=== PATIENT | female | born 1995 | race Caucasian/White ===

== ENCOUNTER 2017-02-07 16:18 | Inpatient (IN) ==
[2017-02-08] MEDS ORDERED: STADOL IV PRN ×3 (23:48)
[2017-02-08] MEDS ORDERED: BRETHINE SUBQ PRN (23:48)
[2017-02-08] MEDS ORDERED: PEPCID IV PRN (23:48)
[2017-02-08] MEDS ORDERED: TYLENOL PO PRN (23:48)
[2017-02-08] MEDS ORDERED: PEPCID PO ONE (23:48)
[2017-02-08] MEDS ORDERED: REGLAN PO ONE (23:48)
[2017-02-08] MEDS ORDERED: KEFZOL 1 GM/D5W 1 GM/50 ML IVPB IV PRN (23:48)
[2017-02-08] MEDS ORDERED: ZOFRAN IV PRN (23:48)
[2017-02-08] MEDS ORDERED: PEPCID PO PRN (23:48)
[2017-02-08] MEDS ORDERED: AMBIEN PO PRN (23:48)
[2017-02-09] MEDS: LR 1,000 ML IV ONE ×2 (00:30→07:52)
[2017-02-09] MEDS ORDERED: AMPICILLIN 2 GM/NS 2 GM/100 ML IVPB IV ONE (00:30)
[2017-02-09 01:18] LABS: MANUAL DIFF NEEDED? NO
[2017-02-09 01:18] LABS: URINE SOURCE VOIDED
[2017-02-09 01:26] LABS: BILIRUBIN URINE NEGATIVE (NEGATIVE); BLOOD URINE 1+ (NEGATIVE); CLARITY SL. CLOUDY (CLEAR); COLOR YELLOW; GLUCOSE URINE NEGATIVE (NEGATIVE); LEUKOCYTES URINE 2+ (NEGATIVE); NITRITE URINE NEGATIVE (NEGATIVE); PROTEIN URINE TRACE mg/dL (NEGATIVE); SP GRAVITY URINE 1.015; UROBILINOGEN URINE NORMAL
[2017-02-09 01:45] LABS: BASO% 0.1 % (0.0-0.8); EOS# 0.07 X1000 (0.0-0.7); EOS% 0.7 % (0.0-10.0); HEMOGLOBIN 11.9 g/dL (12.0-16.0); IMM GRAN# 0.02 X1000 (0.0-0.04); IMM GRAN% 0.2 % (0.0-0.5); LYMPH# 2.97 X1000 (1.2-3.4); LYMPH% 31.1 % (20.5-51.1); MCH 30.5 PG (27-31); MCHC 33.1 g/dL (33-37); MCV 92.3 FL (81-99); MONO# 0.87 X1000 (0.11-0.59); MONO% 9.1 % (1.7-9.3); MPV 11.4 FL (7.4-10.4); NEUT% 58.8 % (42.2-75.2); PLT 201 X1000 (130-400)
[2017-02-09] MEDS ORDERED: CYTOTEC PO ONE (03:00)
[2017-02-09] MEDS ORDERED: CYTOTEC PO SCH (03:49)
[2017-02-09] MEDS: AMPICILLIN 1 GM/NS 1 GM/50 ML IVPB IV SCH ×2 (04:40→08:36)
[2017-02-09] MEDS ORDERED: MINERAL OIL ONE (06:26)
[2017-02-09] MEDS ORDERED: XYLOCAINE-MPF 1% ONE (06:26)
[2017-02-09] MEDS ORDERED: PITOCIN 30 UNITS/LR 30 UNITS/500 ML IV.SOLN IV SCH (07:00)
[2017-02-09] MEDS ORDERED: NORCO-10 PO PRN (10:49)
[2017-02-09] MEDS ORDERED: AMBIEN PO PRN (10:49)
[2017-02-09] MEDS ORDERED: M-M-R II VACCINE SUBQ ONE (10:49)
[2017-02-09] MEDS ORDERED: BENADRYL PO PRN (10:49)
[2017-02-09] MEDS ORDERED: PERI MEDS (DERMOPLAST/NUPERCAINAL/TUCKS) MISC PRN (10:49)
[2017-02-09] MEDS ORDERED: MINERAL OIL PO PRN (10:49)
[2017-02-09] MEDS ORDERED: BENADRYL IV PRN (10:49)
[2017-02-09] MEDS ORDERED: PITOCIN 20 UNITS/LR 20 UNITS/1,000 ML IV.SOLN IV SCH (10:49)
[2017-02-09] MEDS ORDERED: NORCO-5 PO PRN (10:49)
[2017-02-09] MEDS ORDERED: XYLOCAINE-MPF 1% INJ PRN (10:49)
[2017-02-09] MEDS ORDERED: HYDROXYZINE PO PRN (10:49)
[2017-02-09] MEDS ORDERED: HYDROXYZINE IM PRN (10:49)
[2017-02-09] MEDS ORDERED: PITOCIN IM PRN (10:49)
[2017-02-09] MEDS ORDERED: PITOCIN 30 UNITS/LR 30 UNITS/500 ML IV.SOLN IV ONE (10:49)
[2017-02-09] MEDS ORDERED: BOOSTRIX VACCINE IM ONE (10:49)
[2017-02-09] MEDS ORDERED: CYTOTEC PO PRN (10:49)
[2017-02-09] MEDS ORDERED: FENTANYL-BUPIV-NS 2 MCG-0.1% 200 ML EPIDURAL SCH (11:00)
[2017-02-09] MEDS: MOTRIN PO PRN (16:20)
[2017-02-09] MEDS: PERICOLACE PO SCH (20:58)
[2017-02-10 06:20] LABS: HEMOGLOBIN 11.5 g/dL (12.0-16.0); MCH 29.8 PG (27-31); MCHC 31.9 g/dL (33-37); MCV 93.3 FL (81-99); MPV 10.9 FL (7.4-10.4); RBC 3.86 XMIL (4.2-5.4)
[2017-02-10] MEDS: MOTRIN PO PRN ×2 (11:53→23:52)
[2017-02-10] MEDS: PERICOLACE PO SCH (20:03)
[2017-02-11 08:12] VITALS: BP 124/71
== END 2017-02-11 10:30 | disposition home or self-care (01) ==
LOC: P.LD 16:18 → P.WC 02-09 19:51
PROVIDERS: ADMIT Obstetrics & Gynecology; ATTEND Obstetrics & Gynecology